=== PATIENT | female | born 2005 | race Two or more races ===

== ENCOUNTER 2025-04-08 22:11 | Emergency (ER) | payer MEDICAID, SELFPAY ==
[2025-04-08 22:12] VITALS: BMI 16.9
[2025-04-08 22:21] VITALS: BP 114/77; PULSE 88; RESP 19; TEMP 36.9; O2SAT 100
--- NOTE | 2025-04-08 22:38 | EDNOTE_ITS ---
ED OB Contraction Preg RMI/HPI General Chief complaint: Vaginal Bleeding Stated complaint: VAGINAL BLEEDING X4 WEEKS Time Seen by Provider: 04/08/25 22:29 Arrival date/time: 04/08/25 22:11 20F with no significant PMH presents to ED with 4 weeks of vaginal bleeding. PCP gave some oral Provera, which only helped a bit. Patient is not sexually active. Limitations: no limitations Related Data Previous Rx's ?Medication ?Instructions ?Recorded tobramycin 0.3 % eye drops 1 drop ophthalmic (eye) QID #5 mL 01/07/19 Allergies Allergy/AdvReac Type Severity Reaction Status Date / Time No Known Allergies Allergy Verified 04/08/25 22:12 Review of Systems Review of Systems Systems Reviewed: All systems reviewed, normal except as documented Genitourinary Genitourinary: Reports as per HPI and Reports abnormal vaginal bleeding Past Medical History Past Medical History CARDIAC: Negative Congestive Heart Failure RESPIRATORY: Negative Chronic Obstructive Pulmonary Disease (COPD) GENITOURINARY: Negative Renal Disease ENDOCRINE: Negative Diabetes Mellitus Type 1 or Diabetes Mellitus Type 2 Social History SMOKING STATUS: Never smoker ED Exam General Limitations: Present no limitations General appearance: Present alert and in no apparent distress Head Head exam: Present atraumatic Neck Neck exam: Present normal inspection, full ROM and trachea midline Chest Chest inspection: Present normal inspection and symmetric chest wall rise Neurological Exam Neurological exam: Present alert and oriented X3 Psychiatric Psychiatric exam: Present normal affect and normal mood Skin Skin exam: Present warm, dry, intact and normal color Course Quality Measures none Orders Category Date Time Status US pelvic complete Stat Exams 04/08/25 23:31 Completed CBC Stat Lab 04/08/25 22:57 Completed CMP [Comprehensive Metabolic Panel] Stat Lab 04/08/25 22:57 Completed Drug Screen,Urine Stat Lab 04/08/25 23:44 Completed HCG Qualitative,Urine Stat Lab 04/08/25 23:44 Completed Urinalysis, C/S if Indicated Stat Lab 04/08/25 23:44 Completed Urine Culture Stat Lab 04/08/25 23:44 Received Vital Signs Vital signs: Vital Signs Temperature 98.4 F 04/08/25 22:21 Pulse Rate 88 04/08/25 22:21 Respiratory Rate 19 04/08/25 22:21 Blood Pressure 114/77 04/08/25 22:21 Pulse Oximetry (%) 100 04/08/25 22:21 Oxygen Delivery Method Room Air 04/08/25 22:21 O2 at 100% on RA and WNLs Vaginal Bleeding MDM Narrative MDM Narrative: 20F with no significant PMH presents to ED with 4 weeks of vaginal bleeding. PCP gave some oral Provera, which only helped a bit. Patient is not sexually active. Physical exam reveals uncomfortable female. Patient is afebrile and alert. Upon reassessment, patient is sitting comfortably. US reveals large ovarian cyst. HCG neg. Significant anemia with HgB of 8.3. Counseled to reach out to [facility] tomorrow for new meds/interventions. Counseled about returning if bleeding is a lot heavier or weakness/syncope. Patient data External records reviewed:: [facility] previous records Clinical information provided by:: patient Social determinants that could affect healthcare access:: none Patient has the following chronic illnesses:: none How is presenting disease/condition affected by chronic disease/condition?: no chronic disease Evaluation data The following diagnostics were reviewed and interpreted by me:: lab results and radiology exam(s) Lab and/or radiology exams considered but not ordered:: ordered Interpretation Summary: above Medications / Prescriptions Medications or Prescriptions considered but not ordered:: not ordered Medication administrations:: n/a Consultations Consultation(s) initiated? (list below): No Diagnosis Vaginal Bleeding Differential Diagnosis: missed , threatened , dysfunctional uterine bleeding, menometrorrhagia, incomplete , ectopic without intrauterine , vaginal bleeding and other (ovarian cyst) Most likely diagnosis given after review of the tests above:: vaginal bleeding and ovarian cyst Admission Indicated Admission indicated?: not indicated Admission Request Was there a request for admission?: No Disposition Plan Disposition Plan: Discharge Discharge Attestation Discharge Attestation: The patient and all family members were given an opportunity to ask questions and understood the discharge instructions. Discharge instructions specifically effects, indications for sooner follow up or return to the emergency department, and the expected course of current diagnosis. Patient condition: Stable Discharge Plan Plan Patient Disposition: HOME (Self Care) Discharge Disposition comment: Stable Prescriptions/Referrals Prescriptions/Med Rec: No Action tobramycin 0.3 % drops 1 drop OPHTHALMIC QID Qty: 5 0RF Referrals: Kolton Quick MD [Primary Care Provider, Family Practice] - In 1 week Problem List Clinical Impression: Vaginal bleeding, Ovarian cyst Patient/Caregiver Discharge Instructions Education Materials: ED Dysfunctional Uterine Bleeding, ED Ovarian Cyst Additional Instructions: Please follow-up with PCP within 24-48 hours and return immediately if symptoms worsen. Call [facility] and see which location in town has an OBGYN available in the morning. Print Language: Danish Stand Alone Forms: Patient Portal Info Letter PA/MARY Supervising Physician MISHA/MARY Supervising Physician: Dr. Castano
[2025-04-08 23:17] LABS: Basophils # (Auto) 0.0 Thou/mm3 (0.0-0.2); Basophils % (Auto) 1 % (0-2.5); Eosinophils # (Auto) 0.1 Thou/mm3 (0.0-0.5); Eosinophils % (Auto) 1 % (0-10); Hematocrit 26.9 % (36.0-46.0); Immature Granulocytes Auto 0.01 Thou/mm3 (0.00-0.00); Lymphocytes # (Auto) 3.1 Thou/mm3 (1.0-4.8); Lymphocytes % (Auto) 47 % (10-50); Mean Corpuscular HGB Conc 30.9 g/dl (31.0-37.0); Mean Corpuscular Hemoglobin 23.9 pg (25.0-35.0); Mean Corpuscular Volume 77 fL (80-100); Monocytes # (Auto) 0.8 Thou/mm3 (0.0-0.8); Monocytes % (Auto) 12 % (0-12); Neutrophils # (Auto) 2.6 Thou/mm3 (1.8-7.7); Neutrophils % (Auto) 39 % (37-80); Nucleated Red Blood Cell # 0.00 Thou/mm3 (0.00-0.00); Nucleated Red Blood Cell % 0 /100 WBC (0); Platelet Count 440 Thou/mm3 (140-440); RDW Standard Deviation 41.7 fL (36.4-46.3); Red Blood Count 3.48 Miln/mm3 (4.00-5.20); White Blood Count 6.6 Thou/mm3 (4.5-11.0)
--- NOTE | 2025-04-08 23:31 | XR_ITS ---
Examination: Pelvic ultrasound, transabdominal, complete Technique: Transabdominal ultrasound of the pelvis performed using grayscale imaging Date and time of exam: April 08, 2025, 1129 hours INDICATIONS: Irregular heavy menses 4 weeks FINDINGS: Uterus 6.6 cm endometrial stripe 0.8 cm No uterine mass or intrauterine gestation Right ovary obscured by bowel gas Left ovarian cyst 6.0 x 4.7 cm IMPRESSION: No uterine mass or intrauterine gestation Large left ovarian cyst 6.0 x 4.3 x 4.7 cm
[2025-04-08 23:34] LABS: Hemoglobin 8.3 g/dL (12.0-16.0)
[2025-04-08 23:47] LABS: Collection Type, Urine Clean Catch
[2025-04-08 23:48] LABS: Alanine Aminotransferase 12 U/L (10-49); Albumin, Serum 4.5 gm/dL (3.5-5.0); Albumin/Globulin Ratio 2.0 (1.2-2.2); Alkaline Phosphatase 89 U/L (46-116); Anion Gap 10 (7-16); Aspartate Amino Transferase 18 U/L (0-34); BUN/Creatinine Ratio 17 Ratio (12-20); Bilirubin,Total 0.2 mg/dL (0.3-1.2); Blood Urea Nitrogen 12 mg/dL (9-23); Calcium 8.8 mg/dL (8.3-10.6); Calcium (Corrected) 8.8 mg/dL (8.5-10.1); Carbon Dioxide 22.1 mMol/L (20.0-31.0); Chloride 110 mMol/L (98-107); Creatinine (Component) 0.7 mg/dL (0.6-1.3); Estimated Creatinine Clearance 82.6 mL/min (>60); Globulin 2.3 gm/dL (2.3-3.5); Glucose 85 mg/dL (74-106); Osmolality,Calculated 281 (275-295); Potassium 3.7 mMol/L (3.4-5.1); Sodium 142 mMol/L (136-145); Total Protein 6.8 gm/dL (5.7-8.2); eGFR > 60 See Note
[2025-04-09 00:01] LABS: Bilirubin,Urine Negative (Negative); Blood,Urine 3+ (Negative); Clarity,Urine Clear (Clear/Hazy); Color,Urine Lt-Yellow (Lt Yel-Yel); Glucose, Urine Negative (Negative); Ketones,Urine Negative (Negative); Leukocyte Esterase,Urine Positive (Negative); Nitrite,Urine Negative (Negative); PH,Urine 6.5 (5.0-7.0); Protein,Urine Trace (Neg - Trace); RBC,Urine 34 /hpf (0-3); Specific Gravity,Urine 1.031 (1.001-1.035); Squamous Epithelial Cell,Urine 5 /hpf (0-5); Urobilinogen,Urine Negative mg/dL (0.0-1.0); WBC,Urine 48 /hpf (0-5)
[2025-04-09 00:07] LABS: Amphetamine/Methamp Scrn,U Negative (Negative); Barbiturate Screen,Urine Negative (Negative); Benzodiazepines Screen,Urine Negative (Negative); Benzoylecgonine Screen, Ur Negative (Negative); Fentanyl Screen,Urine Negative (Negative); Opiate Screen,Urine Negative (Negative); THC Screen,Urine Negative (Negative)
[2025-04-09 00:09] LABS: Culture Indicated,Urine Yes; HCG Qualitative,Urine Negative
--- NOTE | 2025-04-09 00:34 | PRELIM_ITS ---
Pelvic ultrasound (transabdominal) with Doppler. April 08, 2025 2329 hours Clinical history: Request Technique: Real-time, grayscale, transabdominal pelvic ultrasound was performed using Duplex scanning including arterial inflow, venous outflow, color and spectral Doppler. Comparison: None available at the time of this report. Findings: The uterus is normal in size measuring 6.6 x 3.0 x 4.5 cm. The endometrium is unremarkable and measures 0.8 cm. The right ovary was not visualized. There is a left ovarian complex cystic lesion measuring 6.0 x 4.3 x 4.7 cm. There is no adnexal mass. There is no free fluid on the submitted images. No abnormalities by Doppler. Impression: Complex cystic lesion in the left ovary, possibly functional, consider follow- up in 3 months. Right ovary not visualized, consider correlation with MRI if clinically indicated. Report Electronically Signed By: Don Gray 04/09/2025 12:34:13 AM [EST]
== END 2025-04-09 00:48 | disposition home or self-care (01) ==
PROVIDERS: Physician Assistant; Emergency Provider Emergency Medicine; PCP Family Medicine
DX: N93.9 Abnormal uterine and vaginal bleeding, unspecified (principal); N83.209 Unspecified ovarian cyst, unspecified side
CPT/HCPCS: 36415; 76856; 80053; 80307; 81001; 81025; 85025; 87086; 99283